=== PATIENT | male | born 1980 | race Caucasian/White ===

== ENCOUNTER 2025-04-08 18:28 | Emergency (ER) | payer SELFPAY ==
[~2025-04-08] VITALS: Ht 172.7 cm; Wt 77.0 kg
[2025-04-08 18:33] VITALS: O2SAT 100
[2025-04-08] MEDS: IBUPROFEN 600MG TABLET PO ONE (19:42)
[2025-04-08] MEDS ORDERED: NAPR220C61 MT (20:15)
[2025-04-08 21:56] VITALS: BP 138/90; PULSE 103; RESP 16; TEMP 37; O2SAT 99
== END 2025-04-08 22:00 | disposition home or self-care (01) ==
LOC: ER 18:28
DX: M25.571 Pain in right ankle and joints of right foot (principal)
CPT/HCPCS: 29515; 73610; 73630; 93971; 99285